=== PATIENT | female | born 1965 | race Caucasian/White ===

== ENCOUNTER → 2017-07-17 | Outpatient (CLI) | payer BC ==
--- NOTE | 2017-07-22 10:18 | P.ARTDOP ---
Arterial Doppler LOWER EXTREMITY ARTERIAL DOPPLER: DATE OF SERVICE: 07/17/2017 Reason for study: Leg pain. Doppler waveforms: Multiphasic bilaterally throughout. Pulse volume recording: Normal configuration. Pressure gradients: None. Ankle-brachial indices: Greater than 1 bilaterally. Toe pressures: 124 on the right, 115 on the left Impression: Normal study.
== END | disposition home or self-care (01) ==
LOC: RADUSWWP 12:27
PROVIDERS: ATTEND Family Medicine
DX: M79.669 Pain in unspecified lower leg (principal)
CPT/HCPCS: 93923

== ENCOUNTER 2018-02-04 07:56 | Day surgery (SDC) | payer BC, OTHER ==
[2018-01-29 12:13] VITALS: BMI 47.9
--- NOTE | 2018-02-03 13:26 | HP ---
HISTORY AND PHYSICAL Surgery is scheduled for 02/04/2018. Germaine Pettit is a 52-year-old patient seen with progressive left knee pain. We discussed treatment options. She elected to proceed with arthroscopy. Consent was obtained. Medical clearance per Dr. Dawson. Cardiac clearance per Dr. Guzmán. PAST MEDICAL HISTORY: Hypertension, cardiovascular disease, [id number] diabetes. PAST SURGICAL HISTORY: Tubal ligation, cholecystectomy. DAILY MEDICATIONS: 1. Amlodipine. 2. Furosemide. 3. Metformin. 4. Metoprolol. 5. [place]. 6. Xarelto. 7. . ALLERGIES: PENICILLIN, TETANUS, NAPROSYN. SOCIAL HISTORY: Patient denies tobacco use. PHYSICAL EVALUATION: Physical evaluation left knee: Range of motion is -3 to 115 degrees. Tenderness along the medial and lateral joint lines. Positive medial Irina's. Crepitus along the patellofemoral compartment range of motion. Some pain with patellofemoral compression. There is a mild effusion present. Ligaments are stable. Hip rotation is without pain. Distal neurovascular exam is intact. Left knee radiographs revealed osteoarthritic changes. MRI of left knee revealed medial meniscal tear and osteoarthritis. IMPRESSION: 1. Internal derangement of left knee with medial meniscal tear. 2. Left knee osteoarthritis. PLAN: Left knee arthroscopy with partial meniscectomy and debridement. MMODL / IJN: [id number] /
[~2018-02-04 07:56] MED LIST: DEXAMETHASONE SOD PHOSPHATE 10 MG/ML 1 ML VIAL IV ONE; LACTATED RINGERS 1,000 ML IV SCH; LIDOCAINE 1% 20 ML VIAL (10MG/ML) FOR IV START INTRADERMA PRN; ONDANSETRON 4 MG/2 ML VIAL IVP ONE; SCOPOLAMINE 1.5MG/72HR PATCH TRANSDERM ONE
[2018-02-04 08:50] LABS: Glucose,Whole Blood 156 mg/dL (75-99)
[2018-02-04] MEDS ORDERED: BUPIVACAIN-EPI 0.5%-1:200,000 30 ML VIAL SQ ONE (09:16)
[2018-02-04] MEDS ORDERED: HYDROmorphone (PF) 1 MG/ML ONE (09:24)
[2018-02-04] MEDS ORDERED: SUCCINYLCHOLINE CHLORIDE VIAL 200 MG/10 ML VIAL IV ONE (09:24)
[2018-02-04] MEDS ORDERED: PROPOFOL 10 MG/ML 20 ML VIAL IV ONE (09:24)
[2018-02-04] MEDS ORDERED: MIDAZOLAM 2 MG/2 ML VIAL ONE (09:24)
[2018-02-04] MEDS ORDERED: LIDOCAINE 1% INJ 10MG/ML (20 ML MDV) ONE (09:24)
[2018-02-04] MEDS ORDERED: fentaNYL (PF) 50 MCG/ML 2 ML AMP ONE (09:24)
--- NOTE | 2018-02-04 10:18 | P.OP ---
Date of Procedure: 02/04/18 Preoperative Diagnosis: Internal derangement left knee Postoperative Diagnosis: 1. Tear medial and lateral meniscus left knee 2. Grade 3/4 chondromalacia medial femoral condyle left knee 3. Grade 3/4 chondromalacia lateral femoral condyle left knee 4. Grade 3 chondromalacia patella left knee 5. Reactive synovitis medial, lateral and suprapatellar compartments left knee Procedure(s) Performed: 1. Arthroscopic partial medial and lateral meniscectomy left knee 2. Arthroscopic chondroplasty medial femoral condyle left knee 3. Arthroscopic microfracture medial femoral condyle left knee 4. Arthroscopic chondroplasty lateral femoral condyle left knee 5. Arthroscopic microfracture lateral femoral condyle left knee 6. Arthroscopic chondroplasty patella left knee 7. Arthroscopic partial synovectomy medial, lateral and suprapatellar compartments left knee Anesthesia: MADHAV, local Surgeon: Osei Jones Estimated Blood Loss (ml): 3 Pathology: none sent Condition: stable Disposition: PACU Indications for Procedure: 52-year-old patient seen with progressive left knee pain. After having treatment options discussed, she elected to proceed with arthroscopy. Operative Findings: see description of procedure Description of Procedure: Patient was taken to the operative suite. Patient underwent a general anesthetic by the department of anesthesia. Patient was given preoperative antibiotics. The left lower extremity was placed in a well-padded arthroscopic leg garber. The left leg was prepped and draped in the normal sterile orthopedic fashion. A lateral parapatellar and suprapatellar incision was made. Trochars were inserted. Arthroscopy was initiated. Suprapatellar pouch revealed diffuse thick reactive synovitis. The patellofemoral joint appeared to articulate congruently. There was grade 3 chondromalacia of the patella and femoral sulcus as well as osteochondral tears on both sides. The scope was guided into the medial gutter. No loose bodies or plica were identified. The scope was then guided into the medial compartment. A medial parapatellar incision was made. Trocar inserted followed by probe. There was grade 3/4 chondromalacia of the femoral condyle. There was an area of exposed bone along the weightbearing surface distal femoral condyle. There was also reactive exposed bone along the medial aspect of the medial tibial plateau. There was a complex tear posterior horn medial meniscus. There was thick reactive synovitis anteriorly. I performed a partial medial meniscectomy down to stable tissue. I performed a chondroplasty of the medial femoral condyle down to stable tissue followed by performing a partial synovectomy decompressing the thick reactive synovitis anteriorly. I performed a microfracture of the medial femoral condyle in that area of exposed bone penetrating the bone with resultant bleeding at the microfracture site. The residual meniscus and osteochondral surfaces were probed and found to be stable. We had good decompression of the thick reactive synovitis anteriorly. Scope and probe were then guided into the intercondylar notch. Cruciates were identified, probed and found to be stable. The scope and probe were then guided into lateral compartment. There was a radial tear mid body lateral meniscus. There were grade 3/4 chondromalacia changes of the lateral femoral condyle. There was reactive synovitis anteriorly. I performed a partial lateral meniscectomy down to stable tissue. I performed a chondroplasty of the lateral femoral condyle down to stable tissue. I performed a partial synovectomy decompressing the thick reactive synovitis along the anterior aspect lateral compartment. I noted an area of exposed bone weightbearing surface lateral femoral condyle. I performed a microfracture to lateral femoral condyle penetrating the bone with resultant bleeding at the microfracture site. The residual meniscus was probed and found to be stable. The residual osteochondral surface lateral femoral condyle was stable. There was good decompression of that reactive synovitis lateral compartment. The scope was in guided back into the suprapatellar compartment. I do see motorize shaver into the super patellar compartment. I debrided some piecemeal fragments of meniscus I encountered. I performed a chondroplasty of the patella and femoral sulcus getting down to stable osteochondral tissue. I performed a partial synovectomy decompressing the thick reactive synovitis within the super patellar compartment. The residual osteochondral surface is worse found stable. There was good decompression of the thick reactive synovitis and super compartment. I now took one more look on the entire knee, no residual debris. Instruments were now removed from the joint. The joint was infiltrated with .25% Marcaine. Steri-Strips were applied to the portal sites. Sterile dressings were applied. The patient was placed into a MELINDA hose. No tourniquet was utilized. The patient was awakened, transferred to a bed and taken to recovery stable satisfactory condition.
[2018-02-04 10:24] VITALS: TEMP 97
[2018-02-04] MEDS: HYDROmorphone 0.5 MG/0.5 ML SYRINGE IVP PRN ×4 (10:28→10:44)
[2018-02-04] MEDS ORDERED: KETOROLAC 30 MG/ML 1 ML VIAL IVP ONE (10:28)
[2018-02-04] MEDS ORDERED: diphenhydrAMINE 50 MG/ML 1 ML VIAL IVP ONE (10:29)
[2018-02-04 10:32] VITALS: RESP 16
[2018-02-04 10:40] LABS: Glucose,Whole Blood 180 mg/dL (75-99)
[2018-02-04] MEDS ORDERED: HYDROcodone/APAP 10-325MG 1 EACH TAB PO ONE (11:23)
[2018-02-04 12:17] VITALS: BP 117/69; PULSE 74
== END 2018-02-04 12:44 | disposition home or self-care (01) ==
LOC: OR 07:56
PROVIDERS: ATTEND Orthopaedic Surgery
DX: S83.242A Other tear of medial meniscus, current injury, left knee, initial encounter (principal); S83.282A Other tear of lateral meniscus, current injury, left knee, initial encounter; X58.XXXA Exposure to other specified factors, initial encounter; M22.42 Chondromalacia patellae, left knee; M65.862 Other synovitis and tenosynovitis, left lower leg; I10 Essential (primary) hypertension; I25.10 Atherosclerotic heart disease of native coronary artery without angina pectoris; E11.9 Type 2 diabetes mellitus without complications; Z79.01 Long term (current) use of anticoagulants; Z79.84 Long term (current) use of oral hypoglycemic drugs; Z79.891 Long term (current) use of opiate analgesic; Z79.899 Other long term (current) drug therapy; Z88.0 Allergy status to penicillin; Z88.7 Allergy status to serum and vaccine; Z88.8 Allergy status to other drugs, medicaments and biological substances
CPT/HCPCS: 29880; J2250; J0330; J1200; J1100; J0690; J2405; J2001; J3010; J1885; J1170 ×2; J2704

== ENCOUNTER → 2019-04-01 | Outpatient (CLI) | payer BC ==
--- NOTE | 2019-04-07 11:42 | P.ARTDOP ---
Arterial Doppler LOWER EXTREMITY ARTERIAL DOPPLER: DATE OF SERVICE: 04/01/2019 Reason for study: Leg cramping. Doppler waveforms: Multiphasic bilaterally throughout. Pulse volume recording: []. Pressure gradients: None. Ankle-brachial indices: Greater than 1 bilaterally. Toe pressures: 141 on the right, 119 on the left Impression: Normal study.
== END | disposition home or self-care (01) ==
LOC: RADUSWWP 12:14
PROVIDERS: ATTEND Family Medicine
DX: R25.2 Cramp and spasm (principal)
CPT/HCPCS: 93922

== ENCOUNTER → 2022-08-15 | Outpatient (CLI) | payer BC ==
--- NOTE | 2022-08-15 16:17 | US ---
EXAMINATION TYPE: US venous doppler duplex LE RT DATE OF EXAM: 08/15/2022 4:02 PM COMPARISON: Prior right lower extremity venous ultrasound February 03, 2014 CLINICAL HISTORY: M79.661 PAIN IN RIGHT LOWER LEG. Patient states waking up and feeling a hard lump a t medial right knee. Patient on blood thinners. SIDE PERFORMED: Right TECHNIQUE: The lower extremity deep venous system is examined utilizing real time linear array sonog joey with graded compression, doppler sonography and color-flow sonography. VESSELS IMAGED: Common Femoral Vein Deep Femoral Vein Greater Saphenous Vein * Femoral Vein Popliteal Vein Small Saphenous Vein * Proximal Calf Veins (* superficial vessels) Right Leg: Negative for DVT Grayscale, color doppler, spectral doppler imaging performed of the deep veins of the right lower ext remity. There is normal flow, compressibility, vascular waveforms. IMPRESSION: No ultrasound evidence for acute DVT in the right lower extremity. No significant change from prior.
== END | disposition home or self-care (01) ==
LOC: RADUSWWP 15:38
PROVIDERS: ATTEND Family Medicine
DX: M79.661 Pain in right lower leg (principal)

== ENCOUNTER → 2024-05-11 | Outpatient (CLI) | payer BC ==
--- NOTE | 2024-05-11 15:30 | MM ---
Reason for Exam: Screening (asymptomatic). Last mammogram was performed 2 year(s) and 10 month(s) ago. Risk Values: Erika 5 year model risk: 0.9%. NCI Lifetime model risk: 4.9%. Prior Study Comparison: 03/10/2019 Bilateral Screening Mammogram, [facility]. 07/01/2021 Bilateral Screening Mammogram, [facility]. Tissue Density: There are scattered areas of fibroglandular density. Findings: Analyzed By CAD. Right breast: There is no suspicious group of microcalcifications or new suspicious mass. Left breast: There is no suspicious group of microcalcifications or new suspicious mass. Overall Assessment: Negative, BI-RAD 1 Management: Screening Mammogram of both breasts in [address] [facility] will attempt to contact patient to return for supplemental views and ultrasound if indicated. Patient should continue monthly self-breast exams. A clinical breast exam by your physician is recommended on an annual basis. This exam should not preclude additional follow-up of suspicious palpable abnormalities. Note on Erika scores and lifetime risk: 1. A Erika score greater than 3% is considered moderate risk. If this is the case, consider specialist referral to assess eligibility for a risk reducing agent. 2. If overall lifetime risk for the development of breast cancer is 20% or higher, the patient may qualify for future screening with alternating mammogram and breast MRI. [facility], , 05/11/2024 3:27 PM. Electronically signed and approved by: Arthur Avendaño DO
== END | disposition home or self-care (01) ==
LOC: RADMAMWWP 09:30
PROVIDERS: ATTEND Family Medicine
CPT/HCPCS: 77063; 77067